=== PATIENT | female | born 1950 | race Caucasian/White ===

== ENCOUNTER 2017-07-02 17:45 | Emergency (ER) | payer OTHER, MEDICARE | END 2017-07-02 22:15 | disposition home or self-care (01) | LOC: ER1 17:45 | DX: M54.9 Dorsalgia, unspecified (principal); V89.2XXA Person injured in unspecified motor-vehicle accident, traffic, initial encounter; Y92.410 Unspecified street and highway as the place of occurrence of the external cause | CPT/HCPCS: 72125; 72128; 99283 ==